=== PATIENT | male | born 1960 | race Caucasian/White ===

== ENCOUNTER → 2016-08-11 | Outpatient (CLI) | payer BC ==
[~2016-08-11] MED LIST: ATARAX,VISTARIL25 MG PO; ATORVASTATIN CA10 MG PO; CILOSTAZOL100 MG PO; CLINDAMYCIN HC300 MG PO; HYDROCODON-ACE1 EAC7 PO; LOPRESSOR100 M1 PO; NOHOMEMEDS; NORCO 5/3251 TABLET PO; PERCOCET 5/31 TABLET PO; ZESTORETIC 20-1 EAC1 PO
== END | disposition home or self-care (01) ==
LOC: CDC 12:01
DX: Z01.810 Encounter for preprocedural cardiovascular examination (principal)
CPT/HCPCS: 93000

== ENCOUNTER → 2016-09-15 | Outpatient (CLI) | payer BC | END | disposition home or self-care (01) | LOC: CDC 14:46 | DX: Z01.810 Encounter for preprocedural cardiovascular examination (principal) | CPT/HCPCS: 93000 ==

== ENCOUNTER 2016-11-09 14:48 | Emergency (ER) | payer OTHER ==
[~2016-11-09] VITALS: Ht 182.9 cm; Wt 100.0 kg
[2016-11-09 16:21] LABS: HEMATOCRIT 41.1 % (38.0-50.0); MCH 29.1 PG (29.0-34.0); MCHC 33.1 G/DL (30.0-36.0); MEAN PLAT.VOLUME 8.6 uM^3 (9.0-12.4); PLATELET COUNT 310 K/uL (156-360); RBC DIS.WIDTH-CV 14.4 % (11.8-14.6); RBC DIS.WIDTH-SD 46.4 % (39-53); RED BLOOD COUNT 4.67 M/uL (4.00-5.50); WHITE BLOOD COUNT 11.4 K/uL (4.1-10.2)
[2016-11-09 16:35] LABS: CHLORIDE 101 mEq/L (99-109); POTASSIUM 3.9 mEq/L (3.7-5.4); SODIUM 136 mEq/L (136-147)
[2016-11-09 16:37] LABS: GLUCOSE 94 mg/dL (70-99)
[2016-11-09 16:38] LABS: ANION GAP 20 MEQ/L (2-14)
[2016-11-09 16:39] LABS: TOTAL BILIRUBIN 0.5 mg/dL (0.0-1.0)
[2016-11-09 16:40] LABS: ALKALINE PHOSPHATASE 89 IU/L (3-129)
[2016-11-09 16:41] LABS: GFR ESTIMATE (CALCULATED) > 59 mL/min/
[2016-11-09 16:42] LABS: UREA NITROGEN (BUN) 12 mg/dL (9-23)
[2016-11-09 16:44] LABS: LIPASE 21 U/L (1.0-51.0)
[2016-11-09 18:48] LABS: ADD MIUA? NO; BILIRUBIN NEGATIVE; BLOOD NEGATIVE; COLOR STRAW ((YELLOW)); GLUCOSE (STRIP) NEGATIVE; KETONES NEGATIVE; LEUKOCYTES NEGATIVE; NITRITE NEGATIVE; PROTEIN (STRIP) NEGATIVE; SPECIFIC GRAVITY 1.009 (1.000-1.030); UROBILINOGEN 0.2 MG/DL (0.2-1.0)
[2016-11-09] MEDS ORDERED: PERCOCET 5/31 TABLET PO (20:15)
[2016-11-09 20:16] VITALS: BP 139/96
== END 2016-11-09 20:18 | disposition home or self-care (01) ==
LOC: EME 14:48
PROVIDERS: Nurse Practitioner Family
DX: R10.12 Left upper quadrant pain (principal); I10 Essential (primary) hypertension; F17.200 Nicotine dependence, unspecified, uncomplicated
CPT/HCPCS: 71020; 74177; 80053; 81003; 83690; 85027; 93005; 99281; 99285; J3010; J7030

== ENCOUNTER → 2017-11-03 | Outpatient (CLI) | payer OTHER | END | disposition home or self-care (01) | LOC: CDC 09:46 | DX: Z01.810 Encounter for preprocedural cardiovascular examination (principal); I70.25 Atherosclerosis of native arteries of other extremities with ulceration | CPT/HCPCS: 93000 ==